=== PATIENT | female | born 1985 | race Caucasian/White ===

== ENCOUNTER → 2017-10-06 13:17 | Outpatient (CLI) | payer OTHER, SELFPAY ==
--- NOTE | 2017-10-06 | DI.MRI.S_ITS ---
PROCEDURE: MR THORACIC SPINE WO CON INDICATIONS: SUSPECT SPINAL LEAK. HEADACHES TECHNIQUE: Noncontrast sagittal T1 spine echo and T2 fast spin echo, sagittal STIR, axial T1 and T2 fast spin echo through the thoracic spine. Additional coronal HASTE images were obtained throughout the entire spine, with axial reformatted images. COMPARISON: None. FINDINGS: Image quality: Excellent. Alignment and Curvature: There is normal bony alignment. Bone Marrow: Marrow is of normal overall signal. No acute vertebral body compression fractures. Spinal Cord: Visualized spinal cord is normal in size and signal. Paraspinous Soft Tissues: No paravertebral masses. No paraspinous fluid collections are seen to suggest a cannulated area of CSF. Miscellaneous: On axial images, central canal and foramina appear widely patent within the thoracic spine. There is made of partial visualization of cervical spine degenerative change at the C5-C6 level, as on series 11 image 6. IMPRESSION: A source of CSF leak is not identified. Thoracic spine MRI within normal limits. Note made of focal C5-C6 degenerative change. Dictated by: Mike Potts M.D. on 10/08/2017 at 13:27 Approved by: Mike Potts M.D. on 10/08/2017 at 13:30
== END ==
PROVIDERS: PCP Family Medicine; Visit Provider Family Medicine
DX: R51 Headache (principal)
CPT/HCPCS: 72146